=== PATIENT | male | born 2000 | race Caucasian/White ===

== ENCOUNTER 2022-02-21 17:29 | Emergency (ER) | payer OTHER, MEDICARE, MEDICAID | END 2022-02-21 20:19 | disposition home or self-care (01) | LOC: MADERS 17:29 | DX: S80.11XA Contusion of right lower leg, initial encounter (principal); S70.12XA Contusion of left thigh, initial encounter; G43.909 Migraine, unspecified, not intractable, without status migrainosus; X58.XXXA Exposure to other specified factors, initial encounter | CPT/HCPCS: 99283 ==